=== PATIENT | female | born 1955 | race Caucasian/White ===

== ENCOUNTER 2022-10-21 08:06 | Outpatient (CLI) | payer MEDICARE, OTHER ==
--- NOTE | 2022-10-21 09:04 | DEXA Report ---
PROCEDURE: Dexa Spine and/or Hip INDICATIONS: POST MENOPAUSAL TECHNIQUE: Dual energy x-ray absorptiometry (DXA) was performed on a [employer]. Regions measur ed are the AP Spine, femoral neck, and if needed forearm. COMPARISON: 06/17/2014 FINDINGS: Lumbar Spine: Bone Mineral Density 1.073 g/cm/cm,T score -0.9, normal. Previous T score -0.9. Left Femoral Neck: Bone Mineral Density 0.808 g/cm/cm, T score -1.7, osteopenia. Previous T score -1.2. Left Hip: Bone Mineral Density 0.964 g/cm/cm,T score -0.3, normal. Previous T score 0.1. (T score greater or equal to -1.0: NORMAL) (T score from -1.1 to -2.4: OSTEOPENIA) (T score less than or equal to -2.5 to: OSTEOPOROSIS) Impression: Osteopenia. Patients with diagnosis of osteoporosis or osteopenia should have regular bone mineral density assess ment. For those eligible for Medicare, routine testing is allowed once every 2 years. Testing frequ ency can be increased for patients who have rapidly progressing disease or for those who are receivin g medical therapy to restore bone mass. Reviewed by: Alfredo Sparks MD on 10/21/2022 9:02 AM PDT Approved by: Alfredo Sparks MD on 10/21/2022 9:02 AM PDT Station ID: [id number]
== END 2022-10-21 08:07 | disposition home or self-care (01) ==
LOC: DI 08:06
PROVIDERS: ATTEND Internal Medicine
DX: M85.88 Other specified disorders of bone density and structure, other site (principal)